=== PATIENT | female | born 2005 | race Caucasian/White ===

== ENCOUNTER 2023-11-02 09:57 | Inpatient (IN) | payer OTHER ==
[2023-11-02 11:20] LABS: HEMOGLOBIN 12.7 GM/dL (10.7-15.3); MCH 26.2 pg (25.7-33.7); MCHC 31.7 g/dl (32.0-36.0); MEAN CELL VOLUME 82.5 fl (80-96); MEAN PLT VOLUME 8.4 fl (7.5-11.1); PLATELET COUNT 256 10^3/uL (134-434); RBC 4.85 M/mm3 (3.60-5.2); RDW 17.6 % (11.6-15.6); WHITE BLOOD COUNT 14.2 K/mm3 (4.0-10.0)
[2023-11-02 11:38] LABS: POTASSIUM 4.2 mmol/L (3.5-5.1)
[2023-11-02 11:40] LABS: CALCIUM 9.1 mg/dL (8.5-10.1)
[2023-11-02 11:41] LABS: ALBUMIN 2.5 g/dl (3.4-5.0); BLOOD UREA NITROGEN 8.6 mg/dL (7-18)
[2023-11-02 11:44] LABS: CREATININE 0.6 mg/dL (0.55-1.3)
[2023-11-02 11:45] LABS: BILIRUBIN,TOTAL 0.1 mg/dL (0.2-1); TOT PROT 6.2 g/dl (6.4-8.2)
[2023-11-02 12:24] VITALS: RESP 18
[2023-11-02] MEDS: ELECTROLYTE-148 SOLN 1,000 ML IV SCH (12:45)
[2023-11-02 12:59] LABS: INR 0.93 (0.83-1.09); PROTHROMBIN TIME (PATIENT) 10.8 SEC (9.7-13.0)
[2023-11-02 13:02] LABS: ACTIVATED PTT 27.6 SECONDS (25.2-36.5)
[2023-11-02] MEDS: OXYTOCIN 30 UNITS in 0.9% NS 30 UNIT/500 ML INFUS.BAG IVPB SCH (14:00)
[2023-11-02] MEDS: NIFEdipine E.R. 30 MG TABLET PO SCH (14:11)
[2023-11-02 14:38] VITALS: BMI 43.7
[2023-11-02 14:38] LABS: METHADONE, UR NEGATIVE (NEGATIVE); URINE AMPHETAMINES NEGATIVE (NEGATIVE)
[2023-11-02 14:39] LABS: OPIATES, URI NEGATIVE (NEGATIVE); URINE BARBITURATES NEGATIVE (NEGATIVE)
[2023-11-02 14:49] LABS: COCAINE, UR NEGATIVE (NEGATIVE); PHENCYCLIDINE,URINE NEGATIVE (NEGATIVE); URINE BENZODIAZEPINES NEGATIVE (NEGATIVE)
[2023-11-02] MEDS ORDERED: FENTANYL/BUPIVACAINE/NS/PF - PCEA - 50 ML DISP.SYRIN EP ONE (16:49)
[2023-11-02] MEDS ORDERED: OXYTOCIN 20 UNITS in 0.9% NS 20 UNIT/1,000 ML INFUS.BAG IV ONE (17:56)
[2023-11-02] MEDS ORDERED: BENZOCAINE 20% 57 GM BOTTLE TP PRN (18:39)
[2023-11-02] MEDS ORDERED: WITCH HAZEL 50% (TUCKS) 40 PAD/JAR PAD TP PRN (18:39)
[2023-11-02] MEDS ORDERED: BENZOCAINE 28 GM HEMORRHOIDAL OINTMENT TP PRN (18:39)
[2023-11-02] MEDS ORDERED: BISACODYL 10 MG SUPP.RECT RC PRN (18:39)
[2023-11-02] MEDS ORDERED: METHYLERGONOVINE MALEATE 0.2 MG/1 ML AMP IM PRN (18:39)
[2023-11-02] MEDS ORDERED: NALOXONE HCL 0.4 MG/ML VIAL IVPUSH PRN (18:47)
[2023-11-02] MEDS ORDERED: ACETAMINOPHEN 325 MG TABLET (FP) ONE (20:49)
[2023-11-02] MEDS: ACETAMINOPHEN 325 MG TABLET (FP) PO PRN (20:50)
[2023-11-03] MEDS: FENTANYL/BUPIVACAINE/NS/PF - PCEA - 50 ML DISP.SYRIN EP SCH (01:36)
[2023-11-03] MEDS: OXYTOCIN 20 UNITS in 0.9% NS 20 UNIT/1,000 ML INFUS.BAG IV SCH (01:36)
[2023-11-03 08:20] LABS: BASO % 0.4 % (0-2.0); EOS % 0.2 % (0-4.5); HEMATOCRIT 25.6 % (32.4-45.2); HEMOGLOBIN 8.1 GM/dL (10.7-15.3); LYMPH % 23.9 % (8-40); MCH 26.2 pg (25.7-33.7); MCHC 31.8 g/dl (32.0-36.0); MEAN CELL VOLUME 82.4 fl (80-96); MEAN PLT VOLUME 8.5 fl (7.5-11.1); MONO % 7.3 % (3.8-10.2); NEUT % 68.2 % (42.8-82.8); PLATELET COUNT 205 10^3/uL (134-434); RDW 18.4 % (11.6-15.6); WHITE BLOOD COUNT 15.2 K/mm3 (4.0-10.0)
[2023-11-03] MEDS: PRENATAL VITAMINS W/ FOLIC ACID TABLET (FP) PO SCH (09:36)
[2023-11-03] MEDS ORDERED: FLU VACCINE (FLULAVAL) PF 60 MCG/0.5 ML SYRINGE 2023-2024 IM ONE (10:00)
[2023-11-03] MEDS: FLU VACCINE (FLULAVAL) PF 60 MCG/0.5 ML SYRINGE 2023-2024 IM ONE (16:23)
[2023-11-03] MEDS: DIPHTH,PERTUSS(ACELL),TET 0.5 ML DISP.SYRIN IM ONE (16:26)
[2023-11-03] MEDS ORDERED: SENNOSIDES/DOCUSATE COMBO (SENNA PLUS) TABLET (UD) PO PRN (22:00)
[2023-11-04] MEDS: IBUPROFEN 600 MG TABLET (FP) PO PRN (00:07)
[2023-11-04 10:09] VITALS: BP 124/86; PULSE 116; TEMP 98.3
== END 2023-11-04 12:50 | disposition home or self-care (01) | DRG 560 ==
LOC: JDEL 09:57 → JLDR 11:50 → J3W 22:02
PROVIDERS: ADMIT Obstetrics & Gynecology; ATTEND Obstetrics & Gynecology
PROC: 10E0XZZ Delivery of Products of Conception, External Approach (ICD-10-PCS; principal; 2023-11-02)
PROC: 0KQM0ZZ Repair Perineum Muscle, Open Approach (ICD-10-PCS; 2023-11-02)
PROC: 0W8NXZZ Division of Female Perineum, External Approach (ICD-10-PCS; 2023-11-02)
PROC: 3E033VJ Introduction of Other Hormone into Peripheral Vein, Percutaneous Approach (ICD-10-PCS; 2023-11-02)
DX: O14.04 Mild to moderate pre-eclampsia, complicating childbirth (principal); O70.1 Second degree perineal laceration during delivery; Z3A.37 37 weeks gestation of pregnancy; Z37.0 Single live birth
CPT/HCPCS: 36415; 59025; 80053; 80307; 82570; 84156; 85025; 85027; 85610; 85730; 86780; 86850; 86900; 86901; 90686; 90715; G0008